=== PATIENT | male | born 2005 | race Caucasian/White ===

== ENCOUNTER 2023-12-06 09:39 | Emergency (ER) | payer OTHER, SELFPAY ==
[2023-12-06 09:42] VITALS: BP 148/85
--- NOTE | 2023-12-06 10:40 | ED.GENMED ---
History of Present Illness
General
Chief Complaint: Musculo-Skeletal Complaint
Source: patient
Exam Limitations: none
Time Seen by Provider: 12/06/23 09:49
Nursing documentation reviewed up to this point in time: agreed with
Travel History
Have you had any contact with someone who has COVID-19?: No
Do you have any symptoms of coronavirus? Fever > 100 degrees, chills, cough, shortness of breath, sore throat, loss of taste or smell, muscle aches, or headache?: No
History of Present Illness
History of Present Illness:
18-year-old male presenting to the emergency department today with concerns of left hand discomfort after playing basketball last week pain has been ongoing increased discomfort with holding items. He was concerned he might have had a fracture that
was not initially considered. Denies numbness weakness or additional concerns
Review of Systems
Review of Systems
Allergies reviewed?: Yes
All Other Systems: ROS reviewed and negative except as documented in HPI and ROS
Phy Exam
Physical Exam
Physical Exam:
GENERAL: Alert , in no apparent distress
EYE: pupils equal and reactive
NECK: Supple, no significant adenopathy.
ENT: o/p clr, mmm.
CARDIAC: Regular rate and rhythm .
LUNGS: Clear breath sounds bilaterally, no acute respiratory distress, no wheezes/rales/rhonchi
ABDOMEN: Soft, without focal tenderness, no r/g, no cvat
NEUROLOGICAL: Alert and oriented, no focal neuro deficits
SKIN: Warm and dry, skin intact.
MUSCULOSKELETAL: Times palpation mainly to the base of the fourth and fifth metatarsal region no overlying skin changes small mount of swelling to the area no edema, well perfused.
PSYCH: Normal and appropriate interaction.
Course
Orders/Labs/Results
Orders:
Orders
12/06/23 09:45
Hand, Left 3 View [CR Hand - Left Min 3 Views] Urgent
Comment:
Reason For Exam: pain
Vital Signs
Initial and Last Documented VS:
Initial Vital Signs
Temp Pulse Resp BP Pulse Ox
98.7 F 55 18 148/85 99
12/06/23 09:42 12/06/23 09:42 12/06/23 09:42 12/06/23 09:42 12/06/23 09:42
Last Documented Vital Signs
Temp Pulse Resp BP Pulse Ox
98.7 F 55 18 148/85 99
12/06/23 09:42 12/06/23 09:42 12/06/23 09:42 12/06/23 09:42 12/06/23 09:42
MDM/Problems Addressed
MDM/Problems Addressed:
18-year-old male presenting to the emergency department today with concerns of ongoing left-sided hand discomfort after playing basketball last week. Vital signs normal upon arrival tenderness mainly to the base of the fourth and fifth metacarpals.
X-ray without signs of fracture patient with likely sprain. Patient placed in a splint otherwise will follow-up with Ortho for ongoing symptoms. Return precautions given.
*Critical Care Note
Total Time (30-74mins, 75-104mins- exclusive of procedures): Not Applicable
ED Attending Note
-
Portions of this chart may have been created with voice recognition software.� Occasional wrong word or��sound alike� substitutions may have occurred due to the inherent limitations of voice recognition software.
Discharge Plan
Departure
Patient Disposition: Home (Routine Discharge)
Date of Disposition: 12/06/23
Time of Disposition: 11:14
Patient with high blood pressure during this ER visit?: No
Condition: Good
Covid-19: Not Applicable
Discharge Problem:
Hand sprain
Instructions: Muscle and Bone Pain (DC)
Prescriptions:
No Action
No Current Medications
0
Referrals:
Cayden Landry MD [Active] - Follow up in 5-7 days
UNKNOWN - PT DOES,NOT KNOW [Family Provider] -
Activity Restrictions/Additional Instructions:
you came to the emergency department today with concerns of hand discomfort. X-ray did not show obvious fracture you may have a sprain please rest ice compress and elevate and follow-up closely with Ortho for ongoing symptoms.
Interventions
Interventions:
*Risk Screen - Suicide Last Done: 12/06/23 09:42
*General Assessment Last Done: 12/06/23 09:42
*Neglect/Abuse Screening Last Done: 12/06/23 09:42
*ED COVID-19 Vaccine History Last Done: 12/06/23 09:54
ED-Musculoskeletal Assessment Last Done: 12/06/23 09:55
Discharge Date and Time
Print Language: KYRGYZ
[2023-12-06 11:17] VITALS: BP 131/77
== END 2023-12-06 11:18 | disposition home or self-care (01) ==
LOC: EMR 09:39
PROVIDERS: EMERGENCY PHYSICIAN Emergency Medicine
DX: S63.92XA Sprain of unspecified part of left wrist and hand, initial encounter (principal); X58.XXXA Exposure to other specified factors, initial encounter; Y93.67 Activity, basketball
CPT/HCPCS: 99283; 29125; 73130

== ENCOUNTER 2024-09-05 13:49 | Emergency (ER) | payer OTHER, SELFPAY ==
[2024-09-05 14:08] VITALS: BP 134/69
[2024-09-05 14:30] LABS: % Basophils 0.9 % (0-2); % Eosinophils 4.7 % (0-6); % Immature Granulocytes 0.3 % (0-0.5); % Lymphocytes 41.2 % (20.5-51.1); % Monocytes 11.5 % (1.7-9.3); % Neutrophils 41.4 % (42.2-75.2); Absolute Basophils 0.1 10^3/uL (0-0.2); Absolute Eosinophils 0.3 10^3/uL (0-0.7); Absolute Lymphocytes 2.6 10^3/uL (1.2-3.4); Absolute Monocytes 0.7 10^3/uL (0.1-0.6); Absolute Neutrophils 2.6 10^3/uL (1.4-6.5); Hematocrit 44.7 % (39.0-52.0); Hemoglobin 15.9 g/dL (13.0-18.0); Mean Corp Hgb Conc. 35.6 g/dL (33.0-37.0); Mean Corpuscular Hgb 31.3 pg (27.0-31.0); Mean Platelet Volume 10.2 fL (7.4-10.4); Nucleated Red Blood Cells % 0 % (-); Platelet Count 231 10^3/uL (130-400); Red Blood Cell Count 5.08 10^6/uL (4.70-6.10); Red Cell Dist. Width 12.3 % (11.5-14.5); White Blood Cell Count 6.3 10^3/uL (4.8-10.8)
[2024-09-05 14:47] LABS: ALT (SGPT) 25 U/L (0-50); AST (SGOT) 29 U/L (17-59); Albumin 4.8 g/dl (3.5-5.0); Alkaline Phosphatase 97 U/L (38-126); Blood Urea Nitrogen 22 mg/dl (9-20); Calcium 9.5 mg/dl (8.4-10.2); Carbon Dioxide 28 mmol/L (22-30); Chloride 102 mmol/L (98-107); Glucose 104 mg/dl (70-99); Potassium 4.3 mmol/L (3.5-5.1); Sodium 139 mmol/L (135-145); Total Protein 7.2 g/dl (6.3-8.2); eGFR > 60.00
[2024-09-05 14:56] LABS: Troponin I < 0.012 ng/ml
--- NOTE | 2024-09-05 15:45 | ED.GENMED ---
History of Present Illness
General
Chief Complaint: Chest Pain
Source: patient
Exam Limitations: none
Time Seen by Provider: 09/05/24 14:52
Nursing documentation reviewed up to this point in time: agreed with
History of Present Illness
History of Present Illness:
18-year-old male with no significant past medical history is here for mid nonradiating chest pain that came on gradually at 10 AM while he was walking. He has taken ibuprofen with no relief. He denies shortness of breath, abdominal pain, cough or
fever. He does workout daily and plays basketball frequently, no change in his routine or recollection of pain with working out
The pain is worse with certain movements and is reproducible with direct pressure.
Past History
Past History
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
ED Past Surgical History: None
Social History
Tobacco: Non-smoker
Alcohol: None
Personal: Single
Living: with family
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
Review of Systems
Review of Systems
Allergies reviewed?: Yes
All Other Systems: ROS reviewed and negative except as documented in HPI and ROS
Constitutional: Denies fever
EENT: Denies sore throat
Respiratory: Denies trouble breathing
Cardiac: Reports chest pain; Denies diaphoresis or palpitations
ABD/GI: Denies abdominal pain, nausea or vomiting
Skin: Reports no symptoms
Neurological: Reports no symptoms
Phy Exam
Physical Exam
Physical Exam:
GENERAL: No acute distress. A&Ox3.
CONSTITUTIONAL: Afebrile.
EYES: clear, conjunctivae normal
ENMT: moist mucus membranes
RESPIRATORY: Regular respirations, nonlabored, lungs clear.
CARDIOVASCULAR: Regular rate and rhythm, no murmurs, no rubs.
GI: Soft, nontender, normal BS
MUSCULOSKELETAL: Pain immediately reproducible with deep palpation of mid to lower sternum, more tender to right of sternum. Moves with ease. Going from laying to sitting elicits the pain. Well perfused.
SKIN: Warm, dry, pink
PSYCH: Normal mood and affect. Well kept, interactive and appropriate
NEUROLOGIC: Awake, alert and oriented. No focal neurological deficits
Scores
Heart Score for Chest Pain Patients
STEMI patient?: Not applicable
Course
Orders/Labs/Results
Orders:
Orders
09/05/24 13:50
Electrocardiogram (*1) Urgent
Reason for Study: Chest Pain
EKG- Treatment ONCE
09/05/24 14:19
Complete Blood Count/With Diff Urgent
Comprehensive Metabolic Panel Urgent
Troponin I Urgent
09/05/24 15:58
CR Chest - 2 Views Urgent
Comment:
Reason For Exam: mid chest pain
Abnormal Lab Results
09/05/24
14:19
MCH 31.3 H pg
(27.0-31.0)
Absolute Monos (auto) 0.7 H 10^3/uL
(0.1-0.6)
Neutrophils % 41.4 L %
(42.2-75.2)
Monocytes % 11.5 H %
(1.7-9.3)
BUN 22 H mg/dl
(9-20)
Glucose 104 H mg/dl
(70-99)
09/05/24 14:19
09/05/24 14:19
Vital Signs
Initial and Last Documented VS:
Initial Vital Signs
Temp Pulse Resp BP Pulse Ox
98.3 F 63 18 134/69 100
09/05/24 14:08 09/05/24 14:08 09/05/24 14:08 09/05/24 14:08 09/05/24 14:08
Last Documented Vital Signs
Temp Pulse Resp BP Pulse Ox
98.3 F 63 18 134/69 100
09/05/24 14:08 09/05/24 14:08 09/05/24 14:08 09/05/24 14:08 09/05/24 14:08
MDM/Problems Addressed
Differential Diagnosis Includes:
Musculoskeletal chest pain, ACS
MDM/Problems Addressed:
18-year-old male with no significant past medical history is here for mid nonradiating chest pain that came on gradually at 10 AM while he was walking. He has taken ibuprofen with no relief. He denies shortness of breath, abdominal pain, cough or
fever. He does workout daily and plays basketball frequently, no change in his routine or recollection of pain with working out
The pain is worse with certain movements and is reproducible with direct pressure.
EKG sinus bradycardia
CBC normal
CMP normal
Troponin normal
It is reassuring that pain is immediately reproduced with palpation of midsternum more so to the right of the sternum, as well as pain worse with certain movements, more consistent with musculoskeletal pain. This would not be surprising as parents
say he works out every day and played basketball last night
4:30 p.m.
CXR normal
Pt reassured. Stable for discharge
*EKG
EKG Intrepretation Date: 09/05/24
Interpretation: normal
Heart Rate: 46
Rate: bradycardiac
Rhythm: sinus
Isabella: normal axis
Interval: normal interval
QRS Pattern: normal QRS
Ischemia: no ischemia
*Critical Care Note
Total Time (30-74mins, 75-104mins- exclusive of procedures): Not Applicable
ED Attending Note
-
Portions of this chart may have been created with voice recognition software.� Occasional wrong word or��sound alike� substitutions may have occurred due to the inherent limitations of voice recognition software.
Discharge Plan
Departure
Patient Disposition: Home (Routine Discharge)
Date of Disposition: 09/05/24
Time of Disposition: 16:35
Patient with high blood pressure during this ER visit?: No
Condition: Good
Discharge Problem:
Acute chest wall pain, Acute costochondritis
Instructions: Costochondritis, Chest Pain That Is Not Caused by the Heart (DC)
Prescriptions:
No Action
No Current Medications
0
Referrals:
Your, doctor [Other] - As needed
Activity Restrictions/Additional Instructions:
As we discussed, your workup here today shows nothing worrisome\\
You most likely strained the muscles and ligaments/cartilage of the chest wall
Ibuprofen 600 mg (with food) every 6 hours as needed if it helps.
Heating pad or cold compress if they help (stick with whichever feels better).
Avoid any activity or exercising that aggravates the pain until pain is completely gone
Interventions
Interventions:
*Nursing Disposition Last Done: 09/05/24 16:56
ED- Cardiac Assessment Last Done: 09/05/24 14:55
Discharge Date and Time
Discharge Date/Time: 09/05/24 16:55
Print Language: S[place] AFR[place]
== END 2024-09-05 16:55 | disposition home or self-care (01) ==
LOC: EMR 13:49
PROVIDERS: Emergency Medicine; EMERGENCY PHYSICIAN Student in an Organized Health Care Education/Training Program; FAMILY PHYSICIAN Physician Assistant Medical
DX: R07.89 Other chest pain (principal); M94.0 Chondrocostal junction syndrome [Tietze]
CPT/HCPCS: 99283; 71046; 80053; 84484; 85025; 93005